=== PATIENT | female | born 1960 | race Caucasian/White ===

== ENCOUNTER 2017-10-01 08:43 | Inpatient (IN) | payer OTHER ==
[~2017-10-01] VITALS: Ht 157.5 cm; Wt 73.5 kg
[~2017-10-01 08:43] MED LIST: ACYC400T PO; ALBU6.7H INH; FERRTAB2; PARO12.5CR; REFR1DRO
[2017-10-01] MEDS ORDERED: CHLORHEXIDINE GLUCONATE 4% SOLN 120 ML BTL TOPICAL SCH (09:15)
[2017-10-01] MEDS ORDERED: VANCOMYCIN 1000 MG/NS 250 ML (for <70 kg) IV SCH ×2 (09:15)
[2017-10-01] MEDS ORDERED: ceFAZolin 2 GM PREMIX 50 ML IV SCH (09:15)
[2017-10-01] MEDS ORDERED: CHLORHEXIDINE GLUCONATE 2 % 1 PACK (2 CLOTHS) TOPICAL PRN (09:15)
[2017-10-01] MEDS ORDERED: POVIDONE IODINE 5% (ANTISEPSIS KIT) 4 APPLICATIONS EACH NARE PRN (09:15)
[2017-10-01] MEDS ORDERED: LACTATED RINGER'S 1000 ML IV PRN (09:15)
[2017-10-01] MEDS ORDERED: SODIUM CHLORID 0.9% 500 ML IV PRN (09:15)
[2017-10-01] MEDS ORDERED: INSULIN HUMAN REGULAR 1,000 UNITS/10 ML VIAL SQ PRN (09:15)
[2017-10-01] MEDS ORDERED: METOPROLOL TARTRATE 25 MG TAB PO PRN (09:15)
[2017-10-01] MEDS ORDERED: VANCOMYCIN 1 GM/200 ML INJ 200 ML IV ONE (09:30)
[2017-10-01] MEDS ORDERED: GENTAMICIN SULFATE 80 MG/2 ML VIAL ONE (10:23)
[2017-10-01] MEDS ORDERED: SUGAMMADEX SODIUM 200 MG/2 ML VIAL IV PUSH ONE (10:29)
[2017-10-01] MEDS ORDERED: ACETAMINOPHEN 1000 MG/100 ML 100 ML IV ONE (10:30)
[2017-10-01] MEDS ORDERED: BUPIVACAINE PF 0.75% DEX-WATER INJ 2 ML AMP ONE (11:16)
[2017-10-01] MEDS ORDERED: ROCURONIUM INJ 50 MG/5 ML SYRINGE IV PUSH ONE (12:00)
[2017-10-01] MEDS ORDERED: PROPOFOL 200 MG/20 ML AMP IV ONE (12:00)
[2017-10-01] MEDS ORDERED: DEXAMETHASONE SOD PHOS 4 MG/ML VIAL IV ONE (12:00)
[2017-10-01] MEDS ORDERED: ONDANSETRON HCL 4 MG/2 ML VIAL IV ONE (12:00)
[2017-10-01] MEDS ORDERED: VECURONIUM BROMIDE 20 MG VIAL IV ONE (12:00)
[2017-10-01] MEDS ORDERED: LIDOCAINE HCL 1% PF 5 ML SYRINGE OTHER ONE (12:00)
[2017-10-01] MEDS ORDERED: LACTATED RINGER'S 1000 ML INJ 1,000 ML IV ONE (12:00)
[2017-10-01] MEDS ORDERED: PHENYLEPH/NS 1000 MCG/10 ML SYR IV ONE (12:00)
[2017-10-01] MEDS ORDERED: WALKER WHEELS/F1 MIS (12:14)
[2017-10-01] MEDS ORDERED: BEDSIDE COMMODE1 MI1 (12:15)
[2017-10-01] MEDS ORDERED: PROPOFOL 500 MG/50 ML INJ 0 ML ONE (12:15)
[2017-10-01] MEDS ORDERED: PROPOFOL 500 MG/50 ML INJ 50 ML ONE (12:16)
[2017-10-01] MEDS: TRANEXAMIC ACID INJ 735 MG in SODIUM CHLORIDE 0.9% INJ 100 ML IV SCH ×2 (12:21→12:58)
--- NOTE | 2017-10-01 12:21 | HHI.FF ---
Face to Face Verification Diagnosis: (1) Osteoarthritis of left hip Physical Therapy Gait training, Transfer training, bed to chair Hip: Total hip, Protocol: Left Right LE Weight Bearing: WB as tolerated Left LE Weight Bearing: WB as tolerated Nursing RN: 3 days/week x 2 weeks Nursing: Dressing changes (clean incision with alcohol and apply dry dressing ) Additional Instructions aspirin 81 mg bid x 4 weeks dvt prop I have seen patient Eliza Knutson on 10/01/17. My clinical findings support the need for the requested home health care services because: High risk of falls I certify that my clinical findings support that this patient is homebound because: Post-op weakness Jack Davis MD Oct 01, 2017 12:20
[2017-10-01] MEDS ORDERED: BUPIVACAINE/EPINEPHRINE 0.5% PF 10 ML VIAL ONE (12:25)
[2017-10-01] MEDS ORDERED: EXPAREL PERI-ARTICULAR INJECTION (TOTAL VOL. 60 ML) P-ARTICULR SCH ×2 (12:45)
[2017-10-01] MEDS ORDERED: LORazepam 2 MG/ML VIAL ONE (13:33)
[2017-10-01] MEDS ORDERED: MORPHINE SULFATE 8 MG/ML INJ IM PRN (14:00)
[2017-10-01] MEDS ORDERED: ONDANSETRON ODT 4 MG TAB PO PRN (14:00)
[2017-10-01] MEDS ORDERED: ACETAMINOPHEN/HYDROcodone 325 MG/7.5 MG TAB PO PRN (14:00)
[2017-10-01] MEDS ORDERED: ALUMINUM/MAGNESIUM/SIMETH 30 ML CUP PO PRN (14:00)
[2017-10-01] MEDS ORDERED: Post-op Orders (for Pharmacy) XX ONE (14:00)
--- NOTE | 2017-10-01 14:02 | HHI.PR ---
Immediate Post Op Note Procedure Date: Oct 01, 2017 Pre Op Diagnosis: L Hip OA,Acet Dysplasia Post Op Diagnosis: Same Surgeon: Abdiel Davis MD Engineering Professor(s): Naman Davis MD, Naman Padilla PA-C Procedure: L THR Complications: None Specimen(s) removed: None Estimated blood loss: See chart Anesthesia: Spinal, LMA Drains: None Patient to: PACU Patient Condition: Good Implant/Devices: SEE IMPLANT LOG (if applicable) Date/Time of Procedure: SEE SURGICAL CARE RECORD Jack Davis MD Oct 01, 2017 14:02
[2017-10-01] MEDS ORDERED: MIDAZOLAM HCL 2 MG/2 ML VIAL ONE (14:35)
[2017-10-01] MEDS ORDERED: DO NOT ADM ANY ANTICOAGULANT DRUGS PRN (15:00)
[2017-10-01] MEDS: LACTATED RINGER'S 1000 ML INJ 1,000 ML IV SCH ×2 (15:10→23:53)
--- NOTE | 2017-10-01 16:11 | PD.OP ---
cc: Jack Davis MD; Abdiel Davis MD Operative Report Date of Surgery: Oct 01, 2017 Preoperative Diagnosis: (1) Osteoarthritis of left hip Postoperative Diagnosis: (1) Osteoarthritis of left hip Procedure: Left total hip replacement arthroplasty, direct anterior exposure Anesthesia: Spinal with local for pain control Surgeon: Abdiel Davis Glass Blower Helper(s): Jack Davis MD Operation and Findings: EBL: 1000 cc INDICATION: This patient presents with significant hip pain related to severe osteoarthritis of the left hip associated with acetabular dysplasia. Despite extensive conservative care this patient continues to be painful and now presents for surgical treatment. NOTE: Jack Davis was present for the entire surgical procedure as my orthotics prosthetics assistant. In my medical opinion her skill and care was necessary for the proper management of this patient. COMPONENTS: COMPANY: [employer] CUP: [place], 48, 100 series, gription surface LINER: Altrx 32, neutral STEM: [place], size 11, high offset, hydroxyapatite-coated HEAD: 32, ceramics, + 5, 12/14 taper PROCEDURE: This patient was brought to the operating room and anesthetized in the supine position and positioned on the fracture table with both legs held extended. The left hip and leg was scrubbed with alcohol followed by Hibiclens followed by ChloraPrep and draped sterilely. Antibiotics were given within routine time window and a timeout was done. A 4 inch incision was made starting 2 cm distal and 2 cm lateral to the anterior superior iliac spine. The fascia laura was opened longitudinally. The interval between the fascia laura and the rectus was opened down to the capsule of the hip joint. Retractors were positioned allowing good visualization of the capsule. This was opened longitudinally and flaps were created. Stay sutures were utilized. Exposure was excellent. The neck was cut at the proper location using fluoroscopy as a guide. The head was removed. Deep retractors were positioned allowing good visualization of the acetabulum. Acetabulum was deepened down to the floor starting with a proper size reamer and reaming up to 47 mm. A trial was utilized. Fluoroscopy was used to check position and confirmed satisfactory alignment. The rim was reamed with a 48 mm reamer and the final cup was positioned in approximately 20 of anteversion and 40-45 of abduction. Position was satisfactory. A single hole eliminator was positioned followed by the final liner. The lifting hook was utilized. The leg was dropped to the floor, maximally externally rotated and brought across the midline. Retractors were positioned. A box osteotome was utilized followed by progressive broaching to the proper stem size. Trial reduction showed excellent alignment and fit. With 60 of external rotation the leg was dropped to the floor without evidence of anterior subluxation. The wound was irrigated. The final stem was inserted and was found to be very stable. The final reduction using the final head. Stability was as previously noted. Intraoperative x-rays were taken. The wound was irrigated copiously. Hemostasis was controlled. Local anesthesia was utilized. The capsule was repaired with #2 Tycron sutures. The fascia laura was repaired with running 0 PDS on a loop. Subcutaneous tissue was approximated with 2-0 Vicryl and skin with running intradermal 3-0 Vicryl followed by Steri-Strips. A sterile dressing was applied. The patient was awakened and taken to the recovery room in satisfactory condition. FINDINGS: There was severe inflammatory changes of the left hip with acetabular dysplasia and a very high neck angle. There is no complication that was appreciated. The final solution appeared to be excellent Abdiel Davis MD Oct 01, 2017 16:10
[2017-10-01 17:09] LABS: HEMATOCRIT 29.5 % (35.0-46.0); HEMOGLOBIN 9.9 GM/DL (11.6-15.3)
--- NOTE | 2017-10-01 17:14 | RADRPT ---
EXAM DATE: 10/01/2017 5:11 PM EDT AGE/SEX: 57 years / Female INDICATIONS: Left total hip placement in or. CLINICAL DATA: This is the patient's initial encounter. Patient reports that signs and symptoms have been present for 1 day and indicates a pain score of Nonresponsive. MEDICAL/SURGICAL HISTORY: None. None. COMPARISON: No prior exams available for comparison. FINDINGS: 2 fluoroscopic images of the left hip demonstrate a left hip arthroplasty in place. Arthroplasty comp onents appear well positioned and in near-anatomic alignment. No gross bony fractures. Surgical clips are noted in the soft tissues. CONCLUSION: 1. Left hip arthroplasty in anatomic alignment without significant fracture. Electronically signed by: Rubens Gray MD 10/01/2017 5:13 PM EDT
[2017-10-01] MEDS ORDERED: SODIUM CHLORID 0.9% 500 ML INJ 500 ML IV ONE (17:20)
[2017-10-01] MEDS ORDERED: ceFAZolin INJ 1,000 MG VIAL ONE (18:20)
[2017-10-01] MEDS ORDERED: SODIUM CHLORIDE 0.9% INJ 100 ML ONE (18:21)
[2017-10-01] MEDS: CEFAZOLIN INJ 1,000 MG in SODIUM CHLORIDE 0.9% INJ 100 ML IV SCH ×2 (18:25→23:54)
[2017-10-01 19:45] VITALS: BP 116/58; PULSE 79; RESP 16; TEMP 97.6; O2SAT 100
[2017-10-01] MEDS ORDERED: ZOLPIDEM TARTRATE 5 MG TAB PO PRN (21:00)
[2017-10-01] MEDS: ASPIRIN EC 81 MG TABEC PO SCH (21:13)
[2017-10-01] MEDS: ACETAMINOPHEN/HYDROcodone 325 MG/7.5 MG TAB PO PRN (22:59)
[2017-10-01 23:15] VITALS: BP 117/58; PULSE 95; RESP 17; TEMP 98.1; O2SAT 100
[2017-10-02] MEDS: ACETAMINOPHEN/HYDROcodone 325 MG/7.5 MG TAB PO PRN ×2 (04:13→14:55)
[2017-10-02 04:35] VITALS: BP 95/54; PULSE 87; RESP 17; TEMP 99.4; O2SAT 98
[2017-10-02] MEDS: CEFAZOLIN INJ 1,000 MG in SODIUM CHLORIDE 0.9% INJ 100 ML IV SCH (06:00)
--- NOTE | 2017-10-02 07:04 | PD.ORT.PN ---
Subjective Subjective Remarks POD#1 L THR C/O post op pain Explained operative findings to patient;answered multiple questions Objective Vitals Vital Signs Date Time Temp Pulse Resp B/P (MAP) Pulse Ox O2 Delivery O2 Flow Rate FiO2 10/01/17 23:15 98.1 95 17 117/58 (77) 100 10/01/17 19:45 97.6 79 16 116/58 (77) 100 10/01/17 18:00 67 16 124/60 (81) 98 Nasal Cannula 2 10/01/17 17:00 59 17 104/61 (75) 100 10/01/17 16:53 62 12 101/58 (72) 100 10/01/17 16:49 60 12 93/56 (68) 100 10/01/17 16:45 61 12 79/50 (60) 100 10/01/17 16:00 75 10 96/63 (74) 100 10/01/17 16:00 61 17 104/61 (75) 100 10/01/17 15:45 66 11 99/65 (76) 99 10/01/17 15:30 64 11 92/60 (71) 99 10/01/17 15:15 64 12 106/67 (80) 99 10/01/17 15:00 66 11 111/66 (81) 100 10/01/17 14:45 76 13 104/73 (83) 99 10/01/17 14:30 89 12 99/72 (81) 100 Nasal Cannula 2 10/01/17 14:26 97.8 87 19 101/66 (78) 100 Simple Mask 6 I/O 10/01/17 10/01/17 10/01/17 10/02/17 10/02/17 10/02/17 07:00 15:00 23:00 07:00 15:00 23:00 Intake Total 2000 ml 660 ml 1014 ml Output Total 1000 ml Balance 1000 ml 660 ml 1014 ml Intake IV Total 660 ml 1014 ml Other 2000 ml Output Estimated Blood Loss 1000 ml # Voids 1 Result Diagram: 10/01/17 1651 Objective Remarks Dressings dry N/V intact Neg tyree's;no calf tenderness Assessment & Plan Assessment and Plan Ortho stable PT/Rehab Aspirin 81mg x 4 weeks,TEDS for DVT/PE prophylaxsis D/C home today,C RN/PT Jack Davis MD Oct 02, 2017 07:04
[2017-10-02 07:14] LABS: HEMATOCRIT 23.9 % (35.0-46.0); HEMOGLOBIN 8.1 GM/DL (11.6-15.3)
[2017-10-02 08:00] VITALS: BP 114/58; PULSE 78; RESP 18; TEMP 97.8; O2SAT 100
[2017-10-02] MEDS: ASPIRIN EC 81 MG TABEC PO SCH ×2 (09:04→21:43)
[2017-10-02] MEDS: LACTATED RINGER'S 1000 ML INJ 1,000 ML IV SCH ×2 (10:37→20:37)
[2017-10-02 12:00] VITALS: BP 99/60; PULSE 86; RESP 18; TEMP 97.8; O2SAT 96
[2017-10-02 16:00] VITALS: BP 103/62; PULSE 84; RESP 18; TEMP 98; O2SAT 100
[2017-10-02 20:00] VITALS: BP 109/60; PULSE 105; RESP 17; TEMP 98.4; O2SAT 97
[2017-10-02] MEDS ORDERED: traMADol HCL 50 MG TAB PO PRN (20:15)
[2017-10-02] MEDS: DOCUSATE SODIUM 100 MG CAP PO SCH (21:43)
[2017-10-02] MEDS: traMADol HCL 50 MG TAB PO PRN (21:43)
[2017-10-03 00:01] VITALS: BP 110/66; PULSE 106; RESP 18; TEMP 98.5; O2SAT 98
[2017-10-03 04:00] VITALS: BP 104/59; PULSE 109; RESP 18; TEMP 100.1; O2SAT 94
[2017-10-03] MEDS: LACTATED RINGER'S 1000 ML INJ 1,000 ML IV SCH (06:37)
--- NOTE | 2017-10-03 06:51 | PD.ORT.PN ---
Subjective Subjective Remarks POD #2 L THR C/O post op pain Explained operative findings to patient;answered multiple questions Tramadol 50mg works better for pain relief than [place] 7.5mg Objective Vitals Vital Signs Date Time Temp Pulse Resp B/P (MAP) Pulse Ox O2 Delivery O2 Flow Rate FiO2 10/03/17 04:00 100.1 109 18 104/59 (74) 94 10/03/17 00:01 98.5 106 18 110/66 (81) 98 10/02/17 20:00 98.4 105 17 109/60 (76) 97 10/02/17 16:00 98.0 84 18 103/62 (76) 100 10/02/17 12:00 97.8 86 18 99/60 (73) 96 10/02/17 08:00 97.8 78 18 114/58 (76) 100 I/O 10/02/17 10/02/17 10/02/17 10/03/17 10/03/17 10/03/17 07:00 15:00 23:00 07:00 15:00 23:00 Intake Total 1734 ml 600 ml Balance 1734 ml 600 ml Intake Oral 720 ml 600 ml IV Total 1014 ml # Voids 5 2 5 # Bowel Movements 0 Result Diagram: 10/02/17 0637 Objective Remarks Dressings dry N/V intact Neg tyree's sign; no calf tenderness Assessment & Plan Assessment and Plan Ortho stable Continue PT/Rehab Aspirin 81mg x 4 weeks,TEDS for DVT/PE prophylaxsis Iron 325mg BID x 4 weeks for surgical blood loss anemia D/C home today,[facility] RN/PT Jack Davis MD Oct 03, 2017 06:51
[2017-10-03] MEDS: traMADol HCL 50 MG TAB PO PRN (07:17)
[2017-10-03] MEDS ORDERED: TRAM50 PO (07:25)
[2017-10-03] MEDS ORDERED: ASPI81TA23 PO (07:25)
[2017-10-03 07:26] LABS: AUTOMATED NEUTROPHIL # 3.8 TH/MM3 (1.8-7.7); BASOPHIL % 0.2 % (0.0-2.0); EOSINOPHIL % 0.1 % (0.0-4.0); HEMOGLOBIN 7.4 GM/DL (11.6-15.3); LYMPH % 17.1 % (9.0-44.0); LYMPHOCYTE # 0.9 TH/MM3 (1.0-4.8); MEAN CELL VOLUME 87.1 FL (80.0-100.0); MEAN CORPUSCULAR HEMOGLOBIN 29.3 PG (27.0-34.0); MEAN CORPUSCULAR HGB CONC 33.7 % (32.0-36.0); MONO % 11.6 % (0.0-8.0); MONOCYTE # 0.6 TH/MM3 (0-0.9); PLATELET COUNT 124 TH/MM3 (150-450); RED BLOOD COUNT 2.52 MIL/MM3 (4.00-5.30); RED CELL DISTRIBUTION WIDTH 14.4 % (11.6-17.2); WHITE BLOOD COUNT 5.4 TH/MM3 (4.0-11.0)
[2017-10-03 08:08] VITALS: BP 102/66; PULSE 101; RESP 16; TEMP 99.4; O2SAT 96
[2017-10-03] MEDS: DOCUSATE SODIUM 100 MG CAP PO SCH (08:37)
[2017-10-03] MEDS: ASPIRIN EC 81 MG TABEC PO SCH (08:37)
== END 2017-10-03 10:42 | disposition home health service (06) | DRG 470 ==
LOC: HSDI 08:43 → N06B 18:36
PROVIDERS: ADMIT Orthopaedic Surgery Orthopaedic Surgery of the Spine; ATTEND Orthopaedic Surgery Orthopaedic Surgery of the Spine
PROC: 0SRB04A Replacement of Left Hip Joint with Ceramic on Polyethylene Synthetic Substitute, Uncemented, Open Approach (ICD-10-PCS; principal; 2017-10-01 11:21)
DX: M16.12 Unilateral primary osteoarthritis, left hip (principal); D62 Acute posthemorrhagic anemia; Q65.89 Other specified congenital deformities of hip; J45.990 Exercise induced bronchospasm; E06.3 Autoimmune thyroiditis
CPT/HCPCS: 73502; 76000; 85014; 85018; 85025; 86850; 86900; 86901; 86920; 94150; C1776; J0131; J0690; J1100; J1580; J2060; J2250; J2270; J2370; J2405; J3010; J3370; J7040; J7050; J7120